=== PATIENT | male | born 1935 | race Caucasian/White ===

== ENCOUNTER 2018-11-27 09:58 | Emergency (ER) | payer MEDICARE, BC ==
[2018-11-27] MEDS ORDERED: Oxymetazoline 0.05% Nasal Spray 15 ML Bottle NAS ONE (10:01)
--- NOTE | 2018-11-27 10:14 | EDM.PDOC ---
ED HPI GENERAL MEDICAL PROBLEM - General Stated Complaint: BAD BLODDY NOSE Time Seen by Provider: 11/27/18 10:05 Source of Information: Reports: Patient History Limitations: Reports: No Limitations - History of Present Illness INITIAL COMMENTS - FREE TEXT/NARRATIVE: This 83 yo male patient reports to the Ed with a bloody nose. The patient reports he woke up with a bloody nose this morning at about 0400. Stopped for a while, but started bleeding again. The patient reports he has not been able to control the bleeding since that time. The patient is on wildlife protector anticoagulation (Warfarin). The patient has had nosebleeds in the past. Onset: Today Onset Date: 11/27/18 Onset Time: 04:00 Duration: Constant Location: Reports: Face (right nare) Quality: Reports: Other Severity: Moderate Improves with: Reports: None Worsens with: Reports: None Context: Reports: Other Associated Symptoms: Reports: No Other Symptoms - Related Data Allergies Allergy/AdvReac Type Severity Reaction Status Date / Time erythromycin base Allergy Nausea and Verified 11/27/18 10:05 [Erythromycin Base] Vomiting Home Meds: Home Meds Warfarin [Coumadin] 6 mg PO DAILY 12/28/13 [History] Metoprolol Succinate [Toprol XL] 50 mg PO DAILY 05/31/15 [History] Past Medical History Cardiovascular History: Reports: Afib Genitourinary History: Reports: Other (See Below) Social & Family History - Living Situation & Occupation Living situation: Reports: , with Family Occupation: Retired ED ROS ENT - Review of Systems Review Of Systems: ROS reveals no pertinent complaints other than HPI. ED EXAM, ENT - Physical Exam Exam: See Below Exam Limited By: No Limitations General Appearance: Alert, WD/WN, Mild Distress Eye Exam: Bilateral Eye: EOMI, Normal Inspection, PERRL Ears: Normal External Exam, Normal Canal, Hearing Grossly Normal, Normal TMs Nose: Active Bleeding (profuse bleeding from right nare) Mouth/Throat: Other (There was ) Head: Atraumatic, Normocephalic Neck: Normal Inspection, Supple, Non-Tender, Full Range of Motion Respiratory/Chest: No Respiratory Distress, Lungs Clear, Normal Breath Sounds, No Accessory Muscle Use, Chest Non-Tender Cardiovascular: Normal Peripheral Pulses, Regular Rate, Rhythm, No Edema, No Gallop, No JVD, No Murmur, No Rub GI/Abdominal: Normal Bowel Sounds, Soft, Non-Tender, No Organomegaly, No Distention, No Abnormal Bruit, No Mass (Male) Exam: Deferred Rectal (Males) Exam: Deferred Back: Normal Inspection, Full Range of Motion Extremities: Normal Inspection, Normal Range of Motion, Non-Tender, No Pedal Edema, Normal Capillary Refill Neurological: Alert, Oriented, CN II-XII Intact, Normal Cognition, Normal Gait, Normal Reflexes, No Motor/Sensory Deficits Psychiatric: Normal Affect, Normal Mood Skin: Warm, Dry, Intact, Normal Color, No Rash Lymphatic: No Adenopathy Course - Vital Signs Last Recorded V/S: Last Vital Signs Temp 36.2 C 11/27/18 10:00 Pulse 103 H 11/27/18 10:00 Resp 20 11/27/18 10:00 BP 136/74 11/27/18 10:00 Pulse Ox 94 L 11/27/18 10:00 - Orders/Labs/Meds Labs: Laboratory Tests 11/27/18 11/27/18 11/27/18 Range/Units 10:12 10:12 10:12 WBC 12.9 H (5.0-10.0) 10^3/uL RBC 4.85 (4.6-6.2) 10^6/uL Hgb 15.4 (14.0-18.0) g/dL Hct 44.2 (40.0-54.0) % MCV 91.1 (80-100) fL MCH 31.8 (27.0-34.0) pg MCHC 34.8 (33.0-35.0) g/dL Plt Count 255 (150-450) 10^3/uL Neut % (Auto) 84.3 H (42.2-75.2) % Lymph % (Auto) 8.6 L (20.5-50.1) % [place] % (Auto) 6.7 (2-8) % Eos % (Auto) 0.2 L (1.0-3.0) % Baso % (Auto) 0.2 (0.0-1.0) % PT 20.0 H D (9.0-12.0) SEC INR 2.0 H (0.9-1.2) Sodium 136 (135-145) mmol/L Potassium 3.8 (3.6-5.0) mmol/L Chloride 102 (101-111) mmol/L Carbon Dioxide 22.0 (21.0-31.0) mmol/L Anion Gap 15.8 BUN 22 H (7-18) mg/dL Creatinine 1.1 (0.6-1.3) mg/dL Est Cr Clr Drug Dosing 47.53 mL/min Estimated GFR (MDRD) > 60 BUN/Creatinine Ratio 20.00 Glucose 134 H (74-105) mg/dL Calcium 8.4 (8.4-10.2) mg/dl Total Bilirubin 1.6 H (0.2-1.0) mg/dL AST 20 (10-42) IU/L ALT 15 (10-60) IU/L Alkaline Phosphatase 62 (42-121) IU/L Total Protein 7.3 (6.7-8.2) g/dl Albumin 3.9 (3.2-5.5) g/dl Globulin 3.4 Albumin/Globulin Ratio 1.15 Meds: Medications Discontinued Medications Generic Name Dose Route Start Last Admin Trade Name Freq PRN Reason Stop Dose Admin Oxymetazoline HCl 1 ml 11/27/18 10:01 11/27/18 10:06 Afrin Original 0.05% Nasal [place] GLEN 11/27/18 10:02 1 ml ONETIME ONE Administration Departure - Departure Time of Disposition: 11:00 Disposition: Home, Self-Care 01 Condition: Fair Clinical Impression: Epistaxis - Discharge Information *PRESCRIPTION DRUG MONITORING PROGRAM REVIEWED*: Not Applicable *COPY OF PRESCRIPTION DRUG MONITORING REPORT IN PATIENT ANIA: Not Applicable Instructions: Nosebleed, [id number] Forms: ED Department Discharge Care Plan Goals: The patient was advised of the examination and lab results during the visit. A Rhino-rocket was placed in the patients right nare with Afrin to stop the bleeding. The patient was advised to keep the device in place for the next 48 hours prior to having the device removed. The patient was encouraged to call his primary care facility to make an appointment for removal of the device (the patient may have to go to [place] to see and ENT specialist for removal if there is not one coming to [place]). If the patient has any additional symptoms or concerns, the patient should either return to the emergency department or visit his primary care facility.
[2018-11-27 10:30] VITALS: BP 136/74
[2018-11-27 10:40] LABS: ANION GAP 15.8; CHLORIDE,CL 102 mmol/L (101-111); SODIUM,NA 136 mmol/L (135-145)
== END 2018-11-27 11:18 | disposition home or self-care (01) ==
LOC: DL.ED 09:58
DX: R04.0 Epistaxis (principal); I48.91 Unspecified atrial fibrillation; Z79.01 Long term (current) use of anticoagulants; Z79.899 Other long term (current) drug therapy; Z88.1 Allergy status to other antibiotic agents
CPT/HCPCS: 30903; 36415; 80053; 85025; 85610; 99283; A9270

== ENCOUNTER 2018-12-01 18:59 | Emergency (ER) | payer MEDICARE, BC ==
[2018-12-01] MEDS ORDERED: Lidocaine 2% Viscous Solution 15 ML Cup PO ONE (19:51)
[2018-12-01] MEDS ORDERED: Oxymetazoline 0.05% Nasal Spray 15 ML Bottle NAS ONE (19:51)
--- NOTE | 2018-12-01 19:56 | EDM.PDOC ---
ED HPI GENERAL MEDICAL PROBLEM - General Chief Complaint: ENT Problem Stated Complaint: BLOODY NOSE Time Seen by Provider: 12/01/18 19:52 Source of Information: Reports: Patient History Limitations: Reports: No Limitations - History of Present Illness INITIAL COMMENTS - FREE TEXT/NARRATIVE: just returned from ENT to have rhino removed and replaced with some "packing" then suddenly bleeding started. hadn't taken coumadin all week. Nose Pain Score (Numeric/FACES): 6 - Related Data Allergies Allergy/AdvReac Type Severity Reaction Status Date / Time erythromycin base AdvReac Mild Nausea and Verified 12/01/18 20:05 [Erythromycin Base] Vomiting Home Meds: Home Meds Warfarin [Coumadin] 6 mg PO ASDIRECTED 12/28/13 [History] Metoprolol Succinate [Toprol XL] 50 mg PO DAILY 05/31/15 [History] Past Medical History HEENT History: Reports: Epistaxis Cardiovascular History: Reports: Afib Genitourinary History: Reports: Other (See Below) Social & Family History - Living Situation & Occupation Living situation: Reports: , with Family Occupation: Retired ED ROS ENT - Review of Systems Review Of Systems: ROS reveals no pertinent complaints other than HPI. ED EXAM, ENT - Physical Exam Exam: See Below Exam Limited By: No Limitations General Appearance: Alert, WD/WN, Mild Distress, Other (discomfort) Nose: Active Bleeding, Other (right hasslebach) Head: Atraumatic Neck: Non-Tender, Full Range of Motion Respiratory/Chest: No Respiratory Distress Cardiovascular: Regular Rate, Rhythm GI/Abdominal: Soft, Non-Tender Neurological: Alert, Oriented, Normal Cognition, Normal Gait, No Motor/Sensory Deficits Psychiatric: Flat Affect Skin: Warm, Dry, Normal Color Lymphatic: No Adenopathy ED ENT PROCEDURES - Epistaxis Procedure Indication: Epistaxis Recent anticoagulants/antiplatlets: Yes Uncontrolled HTN: No Recent septal/nasal surgery: No Site of bleeding: Right Nare Topical Meds: Other (afrin & viscous lido) Ice pack to area: No Anterior Packing: Other (rhino) Complications: No Course - Vital Signs Last Recorded V/S: Last Vital Signs Temp 36.9 C 12/01/18 20:26 Pulse 116 H 12/01/18 20:26 Resp 20 12/01/18 20:26 BP 127/86 12/01/18 20:26 Pulse Ox 97 12/01/18 20:26 - Orders/Labs/Meds Labs: Laboratory Tests 12/01/18 12/01/18 12/01/18 Range/Units 20:25 20:25 20:25 WBC 10.7 H (5.0-10.0) 10^3/uL RBC 4.01 L (4.6-6.2) 10^6/uL Hgb 12.8 L D (14.0-18.0) g/dL Hct 36.6 L (40.0-54.0) % MCV 91.3 (80-100) fL MCH 31.9 (27.0-34.0) pg MCHC 35.0 (33.0-35.0) g/dL Plt Count 247 (150-450) 10^3/uL Neut % (Auto) 72.3 (42.2-75.2) % Lymph % (Auto) 13.3 L (20.5-50.1) % [place] % (Auto) 13.7 H (2-8) % Eos % (Auto) 0.4 L (1.0-3.0) % Baso % (Auto) 0.3 (0.0-1.0) % PT 11.7 D (9.0-12.0) SEC INR 1.2 (0.9-1.2) Sodium 136 (135-145) mmol/L Potassium 2.9 L (3.6-5.0) mmol/L Chloride 101 (101-111) mmol/L Carbon Dioxide 22.0 (21.0-31.0) mmol/L Anion Gap 15.9 BUN 22 H (7-18) mg/dL Creatinine 1.3 (0.6-1.3) mg/dL Est Cr Clr Drug Dosing 40.22 mL/min Estimated GFR (MDRD) 53 BUN/Creatinine Ratio 16.92 Glucose 118 H (74-105) mg/dL Calcium 8.7 (8.4-10.2) mg/dl Total Bilirubin 1.5 H (0.2-1.0) mg/dL AST 19 (10-42) IU/L ALT 15 (10-60) IU/L Alkaline Phosphatase 58 (42-121) IU/L Total Protein 6.9 (6.7-8.2) g/dl Albumin 3.5 (3.2-5.5) g/dl Globulin 3.4 Albumin/Globulin Ratio 1.03 Meds: Medications Discontinued Medications Generic Name Dose Route Start Last Admin Trade Name Erik PRN Reason Stop Dose Admin Lidocaine HCl 15 ml 12/01/18 19:51 12/01/18 20:00 Xylocaine 2% Viscous PO 12/01/18 19:52 15 ml ONETIME ONE Administration Oxymetazoline HCl 2 ml 12/01/18 19:51 12/01/18 19:59 Afrin Original 0.05% Nasal [place] GLEN 12/01/18 19:52 2 spray ONETIME ONE Administration - Re-Assessments/Exams Free Text/Narrative Re-Assessment/Exam: 12/01/18 21:12 results discussed with pt who is feeling good and no further bleeding presently. Departure - Departure Time of Disposition: 21:13 Disposition: Home, Self-Care 01 Condition: Good Clinical Impression: Epistaxis - Discharge Information Instructions: Nosebleed, [id number] Forms: ED Department Discharge Additional Instructions: 1) rest and avoid getting excited 2) avoid all caffeine drinks 3) call Dr Patton Tuesday 4) recheck if there is any change or concerns
[2018-12-01 20:27] VITALS: BP 127/86
[2018-12-01 21:01] LABS: ANION GAP 15.9
== END 2018-12-01 21:22 | disposition home or self-care (01) ==
LOC: DL.ED 18:59
DX: R04.0 Epistaxis (principal); I48.91 Unspecified atrial fibrillation; Z79.01 Long term (current) use of anticoagulants; Z79.899 Other long term (current) drug therapy; Z88.1 Allergy status to other antibiotic agents
CPT/HCPCS: 36415; 80053; 85025; 85610; 99283; A9270

== ENCOUNTER 2018-12-02 01:24 | Emergency (ER) | payer MEDICARE, BC ==
[2018-12-02] MEDS ORDERED: Lidocaine 2% Viscous Solution 15 ML Cup PO ONE (02:05)
[2018-12-02 02:25] VITALS: BP 147/87
--- NOTE | 2018-12-02 02:43 | EDM.PDOC ---
ED HPI GENERAL MEDICAL PROBLEM - General Chief Complaint: ENT Problem Stated Complaint: [id number] NOSE WONT QUIT BLEEDING Time Seen by Provider: 12/02/18 02:38 Source of Information: Reports: Patient History Limitations: Reports: No Limitations - History of Present Illness INITIAL COMMENTS - FREE TEXT/NARRATIVE: returned for recurrent nose bleed. 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 Nose Pain Score (Numeric/FACES): 6 - Related Data Allergies Allergy/AdvReac Type Severity Reaction Status Date / Time erythromycin base AdvReac Mild Nausea and Verified 12/02/18 02:25 [Erythromycin Base] Vomiting Home Meds: Home Meds Warfarin [Coumadin] 6 mg PO ASDIRECTED 12/28/13 [History] Metoprolol Succinate [Toprol XL] 50 mg PO DAILY 05/31/15 [History] Past Medical History HEENT History: Reports: Epistaxis Cardiovascular History: Reports: Afib Genitourinary History: Reports: Other (See Below) Social & Family History - Family History Family Medical History: Noncontributory - Caffeine Use Caffeine Use: Reports: Soda Other Caffeine Use: once in a while soda pop. rare decaf coffee - Living Situation & Occupation Living situation: Reports: , with Family Occupation: Retired ED ROS ENT - Review of Systems Review Of Systems: ROS reveals no pertinent complaints other than HPI. ED EXAM, ENT - Physical Exam Exam: See Below Exam Limited By: No Limitations General Appearance: Alert, WD/WN, Anxious, Mild Distress Nose: Dried Blood, Other (right hasslebach with no active bleeding, evidence of prior cautery posteriorly, small raw area anterior but no active bleeding,) Mouth/Throat: Normal Inspection Head: Atraumatic Neck: Non-Tender, Full Range of Motion Respiratory/Chest: No Respiratory Distress Cardiovascular: Regular Rate, Rhythm GI/Abdominal: Soft, Non-Tender Neurological: Alert, Oriented, Normal Cognition, Normal Gait, No Motor/Sensory Deficits Psychiatric: Anxious Skin: Warm, Dry, Normal Color Lymphatic: No Adenopathy ED ENT PROCEDURES - Epistaxis Procedure Indication: Epistaxis Recent anticoagulants/antiplatlets: No Uncontrolled HTN: No Site of bleeding: Right Nare Topical Meds: Other (viscous lido) Ice pack to area: No Anterior Packing: Nasal Tampon Complications: No Course - Vital Signs Last Recorded V/S: Last Vital Signs Temp 36.1 C 12/02/18 02:17 Pulse 110 H 12/02/18 02:17 Resp 16 12/02/18 02:17 BP 147/87 H 12/02/18 02:17 Pulse Ox 98 12/02/18 02:17 - Orders/Labs/Meds Meds: Medications Discontinued Medications Generic Name Dose Route Start Last Admin Trade Name Erik PRN Reason Stop Dose Admin Lidocaine HCl 15 ml 12/02/18 02:05 12/02/18 02:09 Xylocaine 2% Viscous PO 12/02/18 02:06 15 ml ONETIME ONE Administration Departure - Departure Time of Disposition: 03:10 Disposition: Home, Self-Care 01 Condition: Good Clinical Impression: Epistaxis - Discharge Information Referrals: Keri Wick PA [Primary Care Provider] - Forms: ED Department Discharge Additional Instructions: 1) merocel nasal tampon was inserted without problem 2) call Dr Patton or clinic Tuesday for possible nasal tampon removal 3) avoid stooping and straining 4) recheck if there is any change or concern
== END 2018-12-02 03:12 | disposition home or self-care (01) ==
LOC: DL.ED 01:24
DX: R04.0 Epistaxis (principal); I48.91 Unspecified atrial fibrillation; Z88.1 Allergy status to other antibiotic agents; Z79.01 Long term (current) use of anticoagulants; Z79.899 Other long term (current) drug therapy
CPT/HCPCS: 30901; 99282; 99283; A9270-GY

== ENCOUNTER 2018-12-02 21:40 | Emergency (ER) | payer MEDICARE, BC ==
[2018-12-02 22:03] VITALS: BP 147/86
--- NOTE | 2018-12-02 22:13 | EDM.PDOC ---
ED HPI GENERAL MEDICAL PROBLEM - General Chief Complaint: ENT Problem Stated Complaint: NOSE BLEED Time Seen by Provider: 12/02/18 22:10 Source of Information: Reports: Patient History Limitations: Reports: No Limitations - History of Present Illness INITIAL COMMENTS - FREE TEXT/NARRATIVE: returned for recurrent nose bleed. states doesn't want to go to GF since has no ins. and nose has now stopped bleeding. 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 - Related Data Allergies Allergy/AdvReac Type Severity Reaction Status Date / Time erythromycin base AdvReac Mild Nausea and Verified 12/02/18 21:58 [Erythromycin Base] Vomiting Home Meds: Home Meds Warfarin [Coumadin] 6 mg PO ASDIRECTED 12/28/13 [History] Metoprolol Succinate [Toprol XL] 50 mg PO DAILY 05/31/15 [History] Past Medical History HEENT History: Reports: Epistaxis Cardiovascular History: Reports: Afib, Hypertension Genitourinary History: Reports: Other (See Below) Social & Family History - Family History Family Medical History: Noncontributory - Tobacco Use Smoking Status *Q: Never Smoker - Caffeine Use Caffeine Use: Reports: Soda Other Caffeine Use: states occasional soda, rare decaf coffee - Recreational Drug Use Recreational Drug Use: No - Living Situation & Occupation Living situation: Reports: , with Family Occupation: Retired ED ROS ENT - Review of Systems Review Of Systems: ROS reveals no pertinent complaints other than HPI. ED EXAM, ENT - Physical Exam Exam: See Below Exam Limited By: No Limitations General Appearance: Alert, WD/WN, Anxious, Mild Distress, Other (upset) Nose: Dried Blood, Other (right nasal tampon intact without active bleeding noted, dried blood present.) Mouth/Throat: Normal Inspection Head: Atraumatic Neck: Non-Tender, Full Range of Motion Respiratory/Chest: No Respiratory Distress Cardiovascular: Regular Rate, Rhythm GI/Abdominal: Soft, Non-Tender Neurological: Alert, Oriented, Normal Cognition, Normal Gait, No Motor/Sensory Deficits Psychiatric: Anxious Skin: Warm, Dry, Normal Color Lymphatic: No Adenopathy Course - Vital Signs Last Recorded V/S: Last Vital Signs Temp 36.2 C 12/02/18 21:42 Pulse 80 12/02/18 21:42 Resp 16 12/02/18 21:42 BP 147/86 H 12/02/18 21:42 Pulse Ox 97 12/02/18 21:42 - Orders/Labs/Meds Labs: Laboratory Tests 12/02/18 12/02/18 Range/Units 22:16 22:16 WBC 10.8 H (5.0-10.0) 10^3/uL RBC 3.94 L (4.6-6.2) 10^6/uL Hgb 12.4 L (14.0-18.0) g/dL Hct 35.9 L (40.0-54.0) % MCV 91.1 (80-100) fL MCH 31.5 (27.0-34.0) pg MCHC 34.5 (33.0-35.0) g/dL Plt Count 263 (150-450) 10^3/uL Neut % (Auto) 72.3 (42.2-75.2) % Lymph % (Auto) 14.1 L (20.5-50.1) % [place] % (Auto) 12.5 H (2-8) % Eos % (Auto) 0.8 L (1.0-3.0) % Baso % (Auto) 0.3 (0.0-1.0) % Sodium 138 (135-145) mmol/L Potassium 3.3 L (3.6-5.0) mmol/L Chloride 101 (101-111) mmol/L Carbon Dioxide 25.0 (21.0-31.0) mmol/L Anion Gap 15.3 BUN 16 (7-18) mg/dL Creatinine 1.0 (0.6-1.3) mg/dL Est Cr Clr Drug Dosing 52.55 mL/min Estimated GFR (MDRD) > 60 BUN/Creatinine Ratio 16.00 Glucose 115 H (74-105) mg/dL Calcium 8.7 (8.4-10.2) mg/dl Total Bilirubin 1.3 H (0.2-1.0) mg/dL AST 18 (10-42) IU/L ALT 13 (10-60) IU/L Alkaline Phosphatase 61 (42-121) IU/L Total Protein 6.7 (6.7-8.2) g/dl Albumin 3.3 (3.2-5.5) g/dl Globulin 3.4 Albumin/Globulin Ratio 0.97 - Re-Assessments/Exams Free Text/Narrative Re-Assessment/Exam: 12/02/18 23:03 re-exam; no further bleeding noted pt prefers home. Departure - Departure Time of Disposition: 23:04 Disposition: Home, Self-Care 01 Condition: Good Clinical Impression: Epistaxis - Discharge Information Forms: ED Department Discharge Additional Instructions: 1) rest 2) avoid stooping or straining 3) recheck if bleeding recurs tomorrow 4) call Dr Patton Tuesday for recheck
[2018-12-02 22:52] LABS: ANION GAP 15.3; CHLORIDE,CL 101 mmol/L (101-111); SODIUM,NA 138 mmol/L (135-145)
== END 2018-12-02 23:23 | disposition home or self-care (01) ==
LOC: DL.ED 21:40
DX: R04.0 Epistaxis (principal); I48.91 Unspecified atrial fibrillation; I10 Essential (primary) hypertension; Z88.1 Allergy status to other antibiotic agents; Z79.01 Long term (current) use of anticoagulants; Z79.899 Other long term (current) drug therapy
CPT/HCPCS: 36415; 80053; 85025; 99283

== ENCOUNTER 2019-09-13 14:45 | Emergency (ER) | payer MEDICARE, BC ==
[2019-09-13] MEDS ORDERED: Oxymetazoline 0.05% Nasal Spray 15 ML Bottle NAS ONE (14:52)
[2019-09-13 14:55] VITALS: BP 169/96; PULSE 109
--- NOTE | 2019-09-13 15:26 | EDM.PDOC ---
ED HPI GENERAL MEDICAL PROBLEM - General Chief Complaint: ENT Problem Stated Complaint: BLOODY NOSE Time Seen by Provider: 09/13/19 14:55 Source of Information: Reports: Patient History Limitations: Reports: No Limitations - History of Present Illness INITIAL COMMENTS - FREE TEXT/NARRATIVE: ED with c/o nose bleed, Started on one side and now on other but slower. Called PCP and told to go to ED. Hx nose bleeds in past. No change in coumadin recently - Related Data Allergies Allergy/AdvReac Type Severity Reaction Status Date / Time erythromycin base AdvReac Mild Nausea and Verified 09/13/19 14:55 [Erythromycin Base] Vomiting Home Meds: Home Meds Warfarin [Coumadin] 6 mg PO ASDIRECTED 12/28/13 [History] Metoprolol Succinate [Toprol XL] 50 mg PO DAILY 05/31/15 [History] Past Medical History HEENT History: Reports: Epistaxis, Impaired Vision Other HEENT History: wears glasses Cardiovascular History: Reports: Afib, Hypertension Respiratory History: Reports: None Gastrointestinal History: Reports: None Genitourinary History: Reports: Other (See Below) Musculoskeletal History: Reports: None Neurological History: Reports: None Psychiatric History: Reports: None Endocrine/Metabolic History: Reports: None Hematologic History: Reports: None Immunologic History: Reports: None Oncologic (Cancer) History: Reports: None Dermatologic History: Reports: None - Infectious Disease History Infectious Disease History: Reports: Chicken Pox, Measles, Mumps - Past Surgical History Head Surgeries/Procedures: Reports: None Social & Family History - Family History Family Medical History: Noncontributory - Tobacco Use Smoking Status *Q: Never Smoker Second Hand Smoke Exposure: No - Caffeine Use Caffeine Use: Reports: Coffee, Soda Other Caffeine Use: states occasional soda, rare decaf coffee - Recreational Drug Use Recreational Drug Use: No - Living Situation & Occupation Living situation: Reports: , with Family Occupation: Retired ED ROS ENT - Review of Systems Review Of Systems: See Below Constitutional: Reports: No Symptoms HEENT: Reports: Nosebleed, Sinus Problem, Throat Pain Respiratory: Reports: No Symptoms, Shortness of Breath, Cough Cardiovascular: Reports: No Symptoms Endocrine: Reports: No Symptoms GI/Abdominal: Reports: No Symptoms : Reports: No Symptoms, Incontinence Musculoskeletal: Reports: No Symptoms Skin: Reports: No Symptoms Neurological: Reports: No Symptoms ED EXAM, ENT - Physical Exam Exam: See Below Exam Limited By: No Limitations General Appearance: Alert, No Apparent Distress Eye Exam: Bilateral Eye: EOMI Ears: Normal External Exam Nose: Normal Inspection, Dried Blood (right anterior), Injected Turbinates. No : Nasal Deformity, Nasal Discharge, Nasal Swelling, Septal Deformity Mouth/Throat: Normal Inspection Head: Atraumatic, Normocephalic Neck: Normal Inspection Respiratory/Chest: No Respiratory Distress, Lungs Clear Cardiovascular: Normal Peripheral Pulses Back: Full Range of Motion Extremities: Normal Inspection Neurological: Alert, Oriented Psychiatric: Normal Affect, Normal Mood Skin: Warm, Dry Course - Vital Signs Last Recorded V/S: Last Vital Signs Temp 96 F 09/13/19 14:50 Pulse 109 H 09/13/19 14:50 Resp 20 09/13/19 14:50 BP 169/96 H 09/13/19 14:50 Pulse Ox 97 09/13/19 14:50 - Orders/Labs/Meds Labs: Laboratory Tests 09/13/19 09/13/19 09/13/19 Range/Units 13:02 13:02 13:02 WBC 10.4 H (5.0-10.0) 10^3/uL RBC 4.89 (4.6-6.2) 10^6/uL Hgb 15.0 D (14.0-18.0) g/dL Hct 43.8 (40.0-54.0) % MCV 89.6 (80-100) fL MCH 30.7 (27.0-34.0) pg MCHC 34.2 (33.0-35.0) g/dL Plt Count 259 (150-450) 10^3/uL Neut % (Auto) 62.9 (42.2-75.2) % Lymph % (Auto) 24.2 (20.5-50.1) % [place] % (Auto) 11.9 H (2-8) % Eos % (Auto) 0.8 L (1.0-3.0) % Baso % (Auto) 0.2 (0.0-1.0) % PT 19.9 H D (9.0-12.0) SEC INR 2.0 H (0.9-1.2) Sodium 137 (135-145) mmol/L Potassium 4.3 (3.6-5.0) mmol/L Chloride 100 L (101-111) mmol/L Carbon Dioxide 26.0 (21.0-31.0) mmol/L Anion Gap 15.3 BUN 19 H (7-18) mg/dL Creatinine 1.3 (0.6-1.3) mg/dL Est Cr Clr Drug Dosing 39.53 mL/min Estimated GFR (MDRD) 53 BUN/Creatinine Ratio 14.61 Glucose 99 (74-105) mg/dL Calcium 8.8 (8.4-10.2) mg/dl Total Bilirubin 1.2 H (0.2-1.0) mg/dL AST 37 (10-42) IU/L ALT 39 (10-60) IU/L Alkaline Phosphatase 144 H (42-121) IU/L Total Protein 7.8 (6.7-8.2) g/dl Albumin 3.9 (3.2-5.5) g/dl Globulin 3.9 Albumin/Globulin Ratio 1.00 Meds: Medications Discontinued Medications Generic Name Dose Route Start Last Admin Trade Name Freq PRN Reason Stop Dose Admin Oxymetazoline HCl 1 ml 09/13/19 14:52 09/13/19 15:15 Afrin Original 0.05% Nasal [place] GLEN 09/13/19 14:53 1 ml ONETIME ONE Administration Departure - Departure Time of Disposition: 15:27 Disposition: Home, Self-Care 01 Condition: Good Clinical Impression: Epistaxis - Discharge Information *PRESCRIPTION DRUG MONITORING PROGRAM REVIEWED*: No *COPY OF PRESCRIPTION DRUG MONITORING REPORT IN PATIENT ANIA: No Instructions: Nosebleed, [id number] Forms: ED Department Discharge Additional Instructions: light activity avoid bending humidification follow up if bleeding starts again and unable to stop. Sepsis Event Note - Evaluation Sepsis Screening Result: No Definite Risk - Focused Exam Vital Signs: Vital Signs Temp Pulse Resp BP Pulse Ox 09/13/19 14:50 96 F 109 H 20 169/96 H 97 Date Exam was Performed: 09/13/19 Time Exam was Performed: 15:39
[2019-09-13 15:28] LABS: ANION GAP 15.3
== END 2019-09-13 15:44 | disposition home or self-care (01) ==
LOC: DL.ED 14:45
DX: R04.0 Epistaxis (principal); I10 Essential (primary) hypertension; I48.91 Unspecified atrial fibrillation; Z88.1 Allergy status to other antibiotic agents; Z79.01 Long term (current) use of anticoagulants; Z79.899 Other long term (current) drug therapy
CPT/HCPCS: 36415; 80053; 85025; 85610; 99283; A9270